=== PATIENT | male | born 1990 | race Caucasian/White ===

== ENCOUNTER 2021-04-24 21:10 | Emergency (ER) | payer OTHER, SELFPAY ==
[2021-04-24] MEDS ORDERED: Naproxen 500 MG TAB ONE (22:04)
[2021-04-24] MEDS ORDERED: Sulfameth/Trimethoprim DS 800-160mg TAB ONE (22:04)
== END 2021-04-24 22:08 | disposition home or self-care (01) ==
LOC: NAV ERS 21:10
DX: M70.41 Prepatellar bursitis, right knee (principal)